=== PATIENT | male | born 1960 | race Caucasian/White ===

== ENCOUNTER 2016-12-26 10:24 | Emergency (ER) | payer OTHER ==
[~2016-12-26] VITALS: Ht 180.3 cm; Wt 63.5 kg
--- NOTE | ~2016-12-26 | CR63 ---
[facility] A Service of [facility] RADIOLOGY TEXT RESULTS PATIENT: CHIP OCHOA LOCATION: [place] : 64 UNIT #: [id number] AGE: [address]: Radha Emanuel APRN SEX: M ORDER DR: [id number] [facility]. [place], [place] [address] [id number] MR#: [id number] Acc #: [id number] NAME: CHIP OCHOA : 1960 SEX: M STUDY DATE/TIME: 12/26/2016 11:04 UNIT: CFTX ROOM: STUDY DESCRIPTION: CR Chest 2 View Attending Physician: Radha Emanuel A.P.R.N. Ordering Physician: Ed Vladimir Rizzo M.D. Primary Care Physician: No Primary Care Physician MEDICAL IMAGING REPORT This report is preliminary unless electronic signature is present EXAM PA and lateral chest. Date: 12/26/2016 HISTORY 56-year-old male right-side chest pain and right rib pain with cough and congestion today. Fell and hit the site of the bathtub. 30-year smoking history. COMPARISON The patient's previous chest radiograph from 10/03/2014 and 08/13/2012 cannot be retrieved from archives due to computer malfunction at the time of this interpretation. FINDINGS No acute displaced left rib fracture is identified. There is an old healed left 8th posterior rib fracture. Normal heart size. No pleural effusion or pneumothorax. IMPRESSION 1. No acute chest findings. 2. No acute displaced right rib fracture seen. 3. Old left rib fracture. Dictated by... Rubi Hernandez M.D. THIS IS AN ELECTRONICALLY VERIFIED REPORT Rubi Hernandez M.D. at 12/29/2016 8:48 AM LLH/suni TD: 12/26/2016 13:16 [facility] A Service [facility] RADIOLOGY TEXT RESULTS PATIENT: CHIP OCHOA [facility] [id number] : 64 UNIT #: [id number] AGE: [address]: Radha Emanuel APRN SEX: M ORDER DR: JOB #: [id number] MEDICAL IMAGING REPORT Page 1 of 1 COPY
[~2016-12-26 10:24] MED LIST: ALBUTEROL17 GM INH; BENZONATATE PO; ELIMITE60 GM TOP; IBUPROFEN800 MG PO; NAPROSYN500 MG PO; PREDNISONE PO; PREDNISONE10 MG/DOSE PO; ROBITUSSIN15 MG/5 ML PO; ZANTAC150 M1 PO
== END 2016-12-26 11:56 | disposition home or self-care (01) ==
LOC: CFTX 10:24 → CED 10:24 → CFTX 10:56
DX: S20.211A Contusion of right front wall of thorax, initial encounter (principal); J44.9 Chronic obstructive pulmonary disease, unspecified; F20.0 Paranoid schizophrenia; F17.210 Nicotine dependence, cigarettes, uncomplicated; W01.198A Fall on same level from slipping, tripping and stumbling with subsequent striking against other object, initial encounter; Y92.009 Unspecified place in unspecified non-institutional (private) residence as the place of occurrence of the external cause
CPT/HCPCS: 71020; 99284